=== PATIENT | female | born 1950 | race Two or more races ===

== ENCOUNTER 2025-06-21 17:39 | Inpatient (IN) | payer OTHER ==
[~2025-06-21] VITALS: Ht 162.6 cm; Wt 47.6 kg
--- NOTE | 2025-06-21 18:03 | NUR ---
PTE ALERTA,ESTABLE Y ACOMPANADA DEL FAMILIAR CUAL REFIERE QUE LLEVA VARIOS WILCOX CON EL DOLOR ABD
[2025-06-21] MEDS ORDERED: ATACAND16 MG PO (18:05)
[2025-06-21] MEDS ORDERED: RESTORIL30 M1 PO (18:06)
[2025-06-21] MEDS ORDERED: 0.9 % SODIUM CHLORIDE 1,000 ML IV STA ×2 (18:06→22:02)
[2025-06-21] MEDS ORDERED: ATIVAN1 M1 PO (18:06)
--- NOTE | 2025-06-21 18:06 | NUR ---
PTE CON PARCHO DE FENTANYL 25MG ORTIZ
[2025-06-21 18:58] LABS: BASO % 0.6 % (0.1-1.2); EOS # 0.12 (0.04-0.54); EOS % 1.3 % (0.7-7.0); LYMPH # 0.89 (1.18-3.74); LYMPH % 9.3 % (19.3-53.1); MEAN PLATELET VOLUME 9.00 fl (9.4-12.4); MONO # 0.73 (0.24-0.82); MONO % 7.7 % (4.7-12.5); NEUT # 7.69 (1.56-6.13); NEUT % 80.7 % (34.0-71.1); RED CELL DISTRIBUTION WIDTH 17.0 % (11.6-14.4)
[2025-06-21 19:16] LABS: INR 0.98
[2025-06-21 19:26] LABS: ALT/SGPT 36.0 U/L (12-78); AST/SGOT 13.0 U/L (15-37); BILIRUBIN TOTAL 0.43 mg/dL (0.3-1.2); BUN CREA RATIO 28.0 (7.0-25.0); CREATININE SERUM 2.69 mg/dL (0.55-1.02); GFR 17.3; GLOBULINA 4.2 G/DL (2.4-3.5); GLUCOSE FASTING 162.0 mg/dL (65-100); OSMOLALITY SERUM 303.0 MOSM/KG (275-295)
[2025-06-21 22:00] LABS: ERYTHROCYTE SEDIMENTATION RATE 99 mm/hr (0-30)
[2025-06-21] MEDS ORDERED: SODIUM POLYSTYRENE SULFONATE 15 G/4 TSP TSP PO ONE (22:15)
[2025-06-22] MEDS ORDERED: SODIUM POLYSTYRENE SULFONATE 15 G/4 TSP TSP PO STA (00:36)
[2025-06-22] MEDS ORDERED: MORPHINE SULFATE 2 MG/ML SYRINGE IV STA (00:37)
[2025-06-22] MEDS ORDERED: 0.9 % SODIUM CHLORIDE 1,000 ML IV SCH (00:45)
[2025-06-22] MEDS ORDERED: CEFTRIAXONE SODIUM 1,000 MG VIAL IV SCH (02:46)
[2025-06-22 02:54] LABS: URINE APPEARANCE Clear; URINE BILIRRUBIN Negative (NEGATIVE); URINE BLOOD Negative; URINE COLOR Yellow; URINE GLUCOSE Negative (NEGATIVE); URINE KETONE Negative (NEGATIVE); URINE LEUKOCYTE Trace; URINE NITRATE Negative; URINE PROTEIN Negative (NEGATIVE); URINE UROBILINOGEN 0.2 E.U./dl
[2025-06-22 02:58] LABS: URINE BACTERIA 19.4 uL (0.0-1933); URINE RBC 13.4 uL (0.0-20.8); URINE WBC 15.6 uL (0.0-23.2)
[2025-06-22 03:03] LABS: URINE CAST 0.00 uL (0.0-1.40); URINE EPITHELIAL CELLS 1.0 uL (0.0-38.8)
[2025-06-22] MEDS ORDERED: CEFTRIAXONE SODIUM 1,000 MG VIAL ONE ×2 (03:42→09:23)
--- NOTE | 2025-06-22 08:52 | NUR ---
SE RECIBE PTE ALERTA Y ORIENTADO X3 EN CAMA BAJA Y BARANDAS ELEVADAS POR SANTOS SEGURIDAD. PTE SE ENCUENTRA ESTABLE EN LISA VITALES EDI SANTOS CONDICION PERMITE. PENDIENTE A QUE SE LE REALICE CT DE PECHO.
[2025-06-22] MEDS ORDERED: CIPROFLOXACIN IN 5 % DEXTROSE 200 ML IV SCH ×2 (09:00→11:14)
[2025-06-22] MEDS ORDERED: METRONIDAZOLE/SODIUM CHLORIDE 500 MG/100 ML PIGGYBACK IV SCH (09:00)
[2025-06-22] MEDS ORDERED: METRONIDAZOLE/SODIUM CHLORIDE 500 MG/100 ML PIGGYBACK IV ONE ×2 (09:23→11:24)
[2025-06-22] MEDS ORDERED: CIPROFLOXACIN IN 5 % DEXTROSE 400 MG/200 ML PIGGYBAG IV ONE ×2 (09:23→11:22)
[2025-06-22] MEDS ORDERED: INSULIN LISPRO 1,000 UNIT/10 ML UNITS SUBCUTANEO PRN (11:00)
[2025-06-22] MEDS ORDERED: DEXTROSE 50 % IN WATER 0.5 G/ML DISP.SYRIN IV PRN (11:00)
[2025-06-22] MEDS ORDERED: FAMOTIDINE/PF 20 MG in 0.9 % SODIUM CHLORIDE 100 ML IV SCH (11:12)
[2025-06-22] MEDS ORDERED: FAMOTIDINE/PF 20 MG/2 ML VIAL ONE (11:22)
[2025-06-22 13:04] VITALS: BP 147/90; O2SAT 99
[2025-06-22 19:02] VITALS: BP 120/68
[2025-06-23 01:42] VITALS: BP 147/75; O2SAT 100
[2025-06-23 08:58] VITALS: BP 143/60; O2SAT 100
[2025-06-23 09:08] LABS: ALT/SGPT 24.0 U/L (12-78); AST/SGOT 12.0 U/L (15-37); BILIRUBIN TOTAL 0.49 mg/dL (0.3-1.2); BUN CREA RATIO 79.0 (7.0-25.0); GFR 226.14; GLOBULINA 2.8 G/DL (2.4-3.5); GLUCOSE FASTING 74.0 mg/dL (65-100); OSMOLALITY SERUM 293.0 MOSM/KG (275-295)
[2025-06-23 09:09] LABS: CREATININE SERUM 0.29 mg/dL (0.55-1.02)
[2025-06-23] MEDS ORDERED: HALOPERIDOL LACTATE 2 MG/ML ML PO SCH (21:00)
[2025-06-23] MEDS ORDERED: HALOPERIDOL 2 MG TABLET PO SCH (21:00)
[2025-06-23 21:47] VITALS: BP 114/69
[2025-06-24 01:41] VITALS: BP 167/82; O2SAT 96
[2025-06-24 08:52] VITALS: BP 159/73; O2SAT 100
[2025-06-24] MEDS ORDERED: CANDESARTAN CILEXETIL 16 MG TABLET PO NR (11:45)
[2025-06-25] MEDS ORDERED: CANDESARTAN CILEXETIL 16 MG TABLET PO SCH (09:00)
== END 2025-06-24 14:10 | disposition home or self-care (01) | DRG 683 ==
LOC: ER 17:39 → MEDJ 06-22 11:08 → SEC-K 06-22 11:08 → MEDJ 06-22 15:34
PROVIDERS: Internal Medicine Nephrology; Physician Assistant Medical; ADMIT Internal Medicine; ATTEND Internal Medicine
PROC: BW21ZZZ Computerized Tomography (CT Scan) of Abdomen and Pelvis (ICD-10-PCS; 2025-06-21)
PROC: 0T9B70Z Drainage of Bladder with Drainage Device, Via Natural or Artificial Opening (ICD-10-PCS; principal; 2025-06-22)
PROC: BB24ZZZ Computerized Tomography (CT Scan) of Bilateral Lungs (ICD-10-PCS; 2025-06-22)
DX: N17.9 Acute kidney failure, unspecified (principal); J90 Pleural effusion, not elsewhere classified; E87.5 Hyperkalemia; N18.9 Chronic kidney disease, unspecified; E11.9 Type 2 diabetes mellitus without complications; Z74.01 Bed confinement status